=== PATIENT | male | born 2000 | race Caucasian/White ===

== ENCOUNTER 2023-12-18 02:37 | Emergency (ER) | payer OTHER, SELFPAY ==
[2023-12-18 02:49] VITALS: BP 116/64
[2023-12-18 04:25] VITALS: BP 105/62
--- NOTE | 2023-12-18 05:24 | ED.GENMED ---
History of Present Illness
<NAI Jacob - Last Filed: 12/18/23 05:45>
General
Chief Complaint: Skin Problem
Source: patient
Time Seen by Provider: 12/18/23 05:12
Travel History
Have you had any contact with someone who has COVID-19?: No
Do you have any symptoms of coronavirus? Fever > 100 degrees, chills, cough, shortness of breath, sore throat, loss of taste or smell, muscle aches, or headache?: No
History of Present Illness
History of Present Illness:
Pt is a 23 year old male with a PMHx of a herniated disc and sciatica presenting for a small tender nodule on his left hip that he noticed yesterday evening. Pt states he was concerned for a blood clot. He reports moderate tenderness to the area. He
denies any scrapes or cuts to the surrounding skin, and new exercise routine, trauma, or recent sickness. He denies any lower leg swelling or pain, cough, SOB, sore throat, fever, chills, or abdominal pain.
Past History
<NAI Jacob - Last Filed: 12/18/23 05:45>
Past History
ED Past Medical History: None
ED Past Surgical History: None
Social History
Tobacco: Non-smoker
Alcohol: None
Drug: None
Personal: Single
Living: with family
Employment: Employed
Family History
Family History: Other (Noncontributory)
Review of Systems
<NAI Jacob - Last Filed: 12/18/23 05:45>
Review of Systems
All Other Systems: Not applicable
Constitutional: Reports no symptoms
EENT: Reports no symptoms
Respiratory: Reports no symptoms
Cardiac: Reports no symptoms
ABD/GI: Reports no symptoms
: Reports no symptoms
Musculoskeletal: Reports no symptoms
Skin: Reports other (small tender bump on left outer hip)
Neurological: Reports no symptoms
Endocrine: Reports no symptoms
Hematologic/Lymphatic: Reports no symptoms
Psychiatric: Reports no symptoms
Phy Exam
<NAI Jacob - Last Filed: 12/18/23 05:45>
General Physical Exam
General Presentation: well appearing and no apparent distress
General age: appears stated age
General Skin: warm and dry
General Habitus: normal
General Mental: alert
General Hydration: appears well hydrated
Cardiovascular Exam
Cardiovascular Exam: regular rate/rhythm, no edema, no gallop and no murmur
Pulmonary Exam
Pulmonary Exam: lungs clear, no respiratory distress, no rales, no crackles, no rhonchi, no wheezing and no cough
Neurological Exam
Neurological Exam: alert and oriented x3
Musculoskeletal Exam
Musculoskeletal Exam: full ROM and no edema
Course
<NAI Jacob - Last Filed: 12/18/23 05:45>
Orders/Labs/Results
Orders:
Orders
12/18/23 03:05
US Non Vasc LOWER Ext LT Urgent
Reason For Exam: r/o DVT, upper thigh vein bulge
Vital Signs
Initial and Last Documented VS:
Initial Vital Signs
Temp Pulse Resp BP Pulse Ox
98.2 F 66 14 116/64 98
12/18/23 02:49 12/18/23 02:49 12/18/23 02:49 12/18/23 02:49 12/18/23 02:49
Last Documented Vital Signs
Temp Pulse Resp BP Pulse Ox
98.2 F 62 18 105/62 100
12/18/23 02:49 12/18/23 04:25 12/18/23 04:25 12/18/23 04:25 12/18/23 04:25
<Rad Sears DO - Last Filed: 12/18/23 05:43>
Orders/Labs/Results
Orders:
Orders
12/18/23 03:05
US Non Vasc LOWER Ext LT Urgent
Reason For Exam: r/o DVT, upper thigh vein bulge
Vital Signs
Initial and Last Documented VS:
Initial Vital Signs
Temp Pulse Resp BP Pulse Ox
98.2 F 66 14 116/64 98
12/18/23 02:49 12/18/23 02:49 12/18/23 02:49 12/18/23 02:49 12/18/23 02:49
Last Documented Vital Signs
Temp Pulse Resp BP Pulse Ox
98.2 F 62 18 105/62 100
12/18/23 02:49 12/18/23 04:25 12/18/23 04:25 12/18/23 04:25 12/18/23 04:25
<NAI Jacob - Last Filed: 12/18/23 05:45>
MDM/Problems Addressed
Differential Diagnosis Includes:
lymph node, cyst, arthropod bite, blood clot
MDM/Problems Addressed:
tender nodule on left hip
<NAI Jacob - Last Filed: 12/18/23 05:45>
*Critical Care Note
Total Time (30-74mins, 75-104mins- exclusive of procedures): Not Applicable
ED Attending Note
<NAI Jacob - Last Filed: 12/18/23 05:45>
-
Portions of this chart may have been created with voice recognition software.� Occasional wrong word or��sound alike� substitutions may have occurred due to the inherent limitations of voice recognition software.
<DO Tad Perez Last Filed: 12/18/23 05:43>
ED Attending Note
Patient seen and examined by attending physician: Yes
I performed the substantive portion of visit, reviewed & personally made and approve the management plan that is documented in note by myself or ELA.: Yes
ED Attending Note:
Pleasant 23-year-old male who presents with a 'nodule 'on his left proximal lateral thigh. He is concerned because it is in close proximity to what he thinks is a blood vessel. He is concerned that it might be a DVT. Denies any other pain or
symptoms. Denies fever, chills, nausea or vomiting. Denies shortness of breath or chest pain. Patient was seen in conjunction with the PA student. I have reviewed and agree with the history and treatment plan presented. On my independent
physical exam, patient is awake, alert, and oriented x3. On physical exam there is a mobile 1 cm nodule that is easily to palpate. Likely a lymph node or cyst. It does not appear to be an abscess.
Discharge Plan
Departure
Date of Disposition: 12/18/23
Patient with high blood pressure during this ER visit?: No
Condition: Good
Covid-19: Not Applicable
Discharge Problem:
Cyst
Instructions: Epidermal Cyst (DC)
Prescriptions:
No Action
No Current Medications
0
Referrals:
Andrea Vick PA-C [Family Provider] -
Activity Restrictions/Additional Instructions:
No activity restrictions.
Interventions
Interventions:
*Risk Screen - Suicide Last Done: 12/18/23 02:49
*General Assessment Last Done: 12/18/23 02:53
*Neglect/Abuse Screening Last Done: 12/18/23 02:49
ED- Fall Risk Assessment Last Done: 12/18/23 04:31
*ED COVID-19 Vaccine History Last Done: 12/18/23 04:25
ED-Skin Assessment Last Done: 12/18/23 04:31
Discharge Date and Time
Print Language: MAORI
== END 2023-12-18 05:52 | disposition home or self-care (01) ==
LOC: EMR 02:37
PROVIDERS: EMERGENCY PHYSICIAN Student in an Organized Health Care Education/Training Program; FAMILY PHYSICIAN Physician Assistant Medical
DX: M71.352 Other bursal cyst, left hip (principal)
CPT/HCPCS: 99284; 76882